=== PATIENT | male | born 1950 | race Caucasian/White ===

== ENCOUNTER 2022-07-14 09:45 | Emergency (ER) | payer OTHER, MEDICARE ==
[2022-07-14 12:12] VITALS: BP 116/61; PULSE 72
[2022-07-14 12:23] LABS: TROPONIN I HIGH SENSITIVITY 5.3 pg/mL (<=60.3)
== END 2022-07-14 12:57 | disposition home or self-care (01) ==
LOC: JP.ED 09:45
DX: R20.2 Paresthesia of skin (principal); I10 Essential (primary) hypertension; E11.9 Type 2 diabetes mellitus without complications; Z88.0 Allergy status to penicillin; Z91.030 Bee allergy status; Z91.048 Other nonmedicinal substance allergy status; Z79.82 Long term (current) use of aspirin; Z79.899 Other long term (current) drug therapy; Z79.84 Long term (current) use of oral hypoglycemic drugs; Z79.4 Long term (current) use of insulin
CPT/HCPCS: 36415; 80048; 84484; 85025; 99283

== ENCOUNTER 2023-07-05 15:27 | Emergency (ER) | payer OTHER, MEDICARE ==
[2023-07-05 16:02] VITALS: BP 136/63; PULSE 72
== END 2023-07-05 18:13 | disposition home or self-care (01) ==
LOC: JP.ED 15:27
DX: S80.02XA Contusion of left knee, initial encounter (principal); I10 Essential (primary) hypertension; I25.10 Atherosclerotic heart disease of native coronary artery without angina pectoris; M19.90 Unspecified osteoarthritis, unspecified site; E11.9 Type 2 diabetes mellitus without complications; Z88.0 Allergy status to penicillin; Z88.1 Allergy status to other antibiotic agents; Z91.030 Bee allergy status; Z91.048 Other nonmedicinal substance allergy status; Z79.82 Long term (current) use of aspirin; Z79.4 Long term (current) use of insulin; Z79.899 Other long term (current) drug therapy; V59.49XA Driver of pick-up truck or van injured in collision with other motor vehicles in traffic accident, initial encounter; Y92.410 Unspecified street and highway as the place of occurrence of the external cause
CPT/HCPCS: 73562-26-LT; 73562-LT; 99283